=== PATIENT | female | born 1960 | race Caucasian/White ===

== ENCOUNTER → 2018-10-18 | Outpatient (CLI) | payer OTHER ==
[~2018-10-18] VITALS: Ht 160 cm; Wt 53.5 kg
[~2018-10-18] MED LIST: ACCUNEB SO1.25 MG/1 INH; APAP650 PO; ASPIR 8181 MG PO; FISH OIL 1,001000 M2 PO; MULTIVITAMINS PO; OMEPRAZOLE40 MG PO; PRAVACHOL20 MG PO; RESTASIS MULTI5.5 ML OPHTHALMIC; SYNTHROID50 MCG PO; VOLTAREN GEL 1100 G2 TOP; ZANAFLEX2 MG PO
[2018-10-18 09:53] VITALS: BP 134/64
--- NOTE | 2018-10-18 10:26 | NUR ---
Pain Clinic Assessment: 1. History of Osteoarthritis: History of Rheumatoid Arthritis: 2. Height: 5 ft. 3 in. 160.0 cm. Weight: 118.0 lb. oz. 53.524 kg. Patient's BMI: 20.9 3. Vital Signs: BP: 134/64 Pulse: 80 Resp: 14 Temp: 02 Sat: 97 ECG Mon: 4. Pain Intensity: 4 5. Fall Risk: Dizziness: N Needs help standing or walking: N Fallen in the last 3 months: N Fall risk comments: 6. Patient on Blood Thinner: None 7. History of Hypertension: N 8. Opioid Therapy greater than 6 weeks: N Opiate Contract Signed: 9. Risk Assessment Tool Provided: 10. Functional Assessment Tool: 11. Recreational Drug Use: Never Drug Type: Tobacco Use: Never Smoker Tobacco Type: Amount or Packs/day: How Many Years: Alcohol Use: Yes Frequency: Monthly Quant: 1-2 A MONTH
--- NOTE | 2018-10-26 15:29 | HPC ---
[facility] [place] [address] PAIN MANAGEMENT CONSULTATION Name: NORBERT DANIELSON Room #: [facility].#: [id number] Admission: 10/18/18 ������������������ Attend Phys: Bonifacio Hopkins MD Discharge: ������������������ Date of : 64 Report #: [id number] THIS REPORT FOR: //name// CC: JIE Hopkins DATE OF SERVICE: 10/18/2018 This is the first visit in the office for the patient who is here today at the request of Dr. Beatriz Segovia and also from Dr. Jie Cueva and his advanced nurse practitioner. She has been suffering from symptoms characteristic of an L5-S1 radiculopathy. She has an EMG, which shows no evidence of radicular changes and an MRI, which I have reviewed personally that is relatively normal. There is perhaps some slight desiccation of the L5-S1 disk. Because of the paucity of findings in the lumbar spine, she has been treated for piriformis syndrome. She has not responded favorably. She has also had physical exam, but of late limited her activity. Today, she complains of low back pain and bilateral hip pain, but primarily right leg pain that radiates through the hip to the calf. It is an aching tenderness that she describes as 4/10. It is exacerbated by walking and standing and she gets relief from lying down and stretching. MEDICATIONS: Albuterol, multivitamins, Voltaren gel, Tylenol Extra Strength, fish oil, aspirin, Zanaflex, Restasis, omeprazole, pravastatin, and levothyroxine. ALLERGIES: PENICILLIN and ERYTHROMYCIN BASE. PAST MEDICAL HISTORY: Cholecystectomy in 1997. History of gastroesophageal reflux disease. Hypothyroidism. Ganglion cystectomy right wrist 2015. SOCIAL HISTORY: She is . 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 She denies use of tobacco and enjoys alcohol once or twice a month in a social setting. REVIEW OF SYSTEMS: Completed by the patient describes chronic sinusitis, nocturia, numbness and tingling into the right leg and thyroid problems. PHYSICAL EXAMINATION: GENERAL: She is a very pleasant female. No evidence of depression or anxiety. VITAL SIGNS: Blood pressure is 134/64, heart rate is 80, respirations 14, O2 sat 97. Pain intensity is 4/10. [address] [address] PAIN MANAGEMENT CONSULTATION Name: NORBERT DANIELSON Room #: [facility].#: [id number] Admission: 10/18/18 ������������������ Attend Phys: Bonifacio Hopkins MD Discharge: ������������������ Date of : 64 Report #: [id number] EXTREMITIES: She moves from sitting to standing position, has a fairly broad-based gait which was unexpected. She has pain with back extension, reproduces radicular component into the hip and leg. Straight leg raising is positive. Examination of the hip reveals no pain with internal and external rotation, flexion or extension. Sensation is subjectively diminished slightly along the outside of the thigh and calf. No weakness is noted in any of muscle group testing in the lower extremities. IMPRESSION: Symptoms are classic of lumbar radiculopathy, however, the objective studies are limited other than mild desiccation of the L5-S1 disk. It could be some chemical radicular pain related to the phospholipase A2 component of the disk. If there is an annular tear, I would consider an epidural steroid injection for both diagnostic and hopefully therapeutic purposes. I explained the procedure in some detail to the patient. She would like to proceed today with the injection, but we need to wait for preauthorization. Also, I felt a new MRI would be warranted given her ongoing and persistent symptoms. Her last MRI was over 2 years ago. This was ordered. Later after the patient left I noted that she will need to have this ordered by her primary care physician through . So I am sure that will be held up in the process. Finally, I did discuss with her the importance of regular exercise. Daily walk of minimum and she should try and increase her steps. She has worked with physical therapy in the past, so I have encouraged her to continue with range of motion exercises. Hopefully, the epidural will alleviate pain some, so that this important therapy can continue. ��������������������������������������������� <ELECTRONICALLY SIGNED> ���������������������������������������� By: Bonifacio Hopkins MD ��������������������������������������������� 10/26/18 1529 [id number] [id number] Bonifacio Hopkins MD /nt
== END ==
LOC: PAIN 08:45
DX: M54.17 Radiculopathy, lumbosacral region (principal); Z79.899 Other long term (current) drug therapy

== ENCOUNTER → 2018-12-05 | Outpatient (CLI) | payer OTHER ==
[~2018-12-05] VITALS: Ht 160 cm; Wt 55.0 kg
--- NOTE | ~2018-12-05 | HPC ---
[facility] [place] [address] PAIN MANAGEMENT CONSULTATION Name: NORBERT DANIELSON [facility] [id number] Admission: 12/05/18 ������������������ Attend Phys: Bonifacio Hopkins MD Discharge: ������������������ Date of : 64 Report #: [id number] THIS REPORT FOR: //name// CC: Beatriz Hopkins DATE OF SERVICE: 12/05/2018 Followup visit for lumbar epidural steroid injection. The patient returns to pain clinic today and we have decided to proceed with an epidural injection. She has classic symptoms of radiculopathy, but objective studies are limited other than desiccation of the L5-S1 disk. We have given some consideration to why she may be experiencing radiculopathy. As we know that disk nucleus contains phospholipase A2, which has inflammatory component and we do have some patients who experience radiculopathy, I believe, purely on a chemical basis. An epidural steroid injection should be helpful if that is true. We discussed potential benefits and risks. Preauthorization have been received. We talked about an MRI, but elected not to go forward with that. Her last MRI was over 2 years ago and we have noted that there is desiccation of the L5-S1 disk. PHYSICAL EXAMINATION: GENERAL: She is a pleasant female. VITAL SIGNS: Blood pressure 111/60, heart rate 77, respirations 16. BMI 21.5. She moves easily from sitting to standing position. Her gait is nonantalgic. She has some pain with persistent walking that begins across the low back and radiates down the posterior lateral aspect of both legs, right worse than left. IMPRESSION: Lumbar radiculopathy. Disk desiccation at L5-S1. RECOMMENDATION: Epidural steroid injection. PROCEDURE: Epidural steroid injection, L5-S1 under fluoroscopic guidance. She was taken to the fluoroscopic suite where she was placed prone, skin prepped with ChloraPrep. Skin anesthetized over the L5-S1 interspace. Using biplanar fluoroscopic views, I advanced the needle into the epidural space. There was no blood or CSF aspirated. Omnipaque 1 mL was injected and excellent spread of dye observed in the epidural space. This was then followed by 3 mL of 0.5% lidocaine mixed with 80 mg triamcinolone. She tolerated the procedure well. She was observed for 45 minutes and discharged. [address] [address] PAIN MANAGEMENT CONSULTATION Name: NORBERT DANIELSON Room #: [facility].#: [id number] Admission: 12/05/18 ������������������ Attend Phys: Bonifacio Hopkins MD Discharge: ������������������ Date of : 64 Report #: [id number] Followup visit planned in the pain clinic in 1-2 months. ��������������������������������������������� ���������������������������������������� By: ��������������������������������������������� 0950 15 Bonifacio Hopkins MD /nt
[2018-12-05 13:59] VITALS: BP 111/60
--- NOTE | 2018-12-05 14:18 | NUR ---
Pain Clinic Assessment: 1. History of Osteoarthritis: Not Applicable History of Rheumatoid Arthritis: Not Applicable 2. Height: 5 ft. 3 in. 160.0 cm. Weight: 121.2 lb. oz. 54.976 kg. Patient's BMI: 21.5 3. Vital Signs: BP: 111/60 Pulse: 77 Resp: 16 Temp: 02 Sat: 97 ECG Mon: 4. Pain Intensity: 3-4 5. Fall Risk: Dizziness: N Needs help standing or walking: N Fallen in the last 3 months: N Fall risk comments: 6. Patient on Blood Thinner: None 7. History of Hypertension: N 8. Opioid Therapy greater than 6 weeks: N Opiate Contract Signed: 9. Risk Assessment Tool Provided: 10. Functional Assessment Tool: 11. Recreational Drug Use: Never Drug Type: Tobacco Use: Never Smoker Tobacco Type: Amount or Packs/day: How Many Years: Alcohol Use: Yes Frequency: Monthly Quant: 1-2
== END | disposition home or self-care (01) ==
LOC: PAIN 06:58
DX: M54.16 Radiculopathy, lumbar region (principal); Z88.8 Allergy status to other drugs, medicaments and biological substances; Z88.0 Allergy status to penicillin; Z79.899 Other long term (current) drug therapy; Z79.82 Long term (current) use of aspirin

== ENCOUNTER → 2019-03-20 | Outpatient (CLI) | payer OTHER ==
[~2019-03-20] VITALS: Ht 160 cm; Wt 56.9 kg
[~2019-03-20] MED LIST changes: +ESTRADIOL42.5 GM VAG; +PROGESTERONE100 MG PO
--- NOTE | ~2019-03-20 | HPC ---
[facility] [address] [address] PAIN MANAGEMENT CONSULTATION Name: NORBERT DANIELSON Room #: [facility].#: [id number] Admission: 03/20/19 Attend Phys: Bonifacio Hopkins MD Discharge: Date of : 64 Report #: [id number] THIS REPORT FOR: //name// CC: Beatriz Hopkins DATE OF SERVICE: 03/20/2019 REASON FOR VISIT: Followup visit for lumbar radiculopathy. The patient was last seen on 12/05/2018. At that time, she received a lumbar epidural steroid injection performed at the level of L5-S1. She had excellent response. Pain was dramatically improved over the next several days. She was able to take long trip was able to do a number of different gardening activities throughout the month of November and December. Beginning in January after doing some lawn mowing and other chores necessitated by her 's chemotherapy. She began experiencing symptoms once again. She is here today for an epidural injection. Her has been treated for bladder cancer and is finishing his chemotherapy. We discussed importance of proper body mechanics and avoiding re-injury. PHYSICAL EXAMINATION: GENERAL: She is a pleasant 58-year-old. VITAL SIGNS: Blood pressure 126/66, heart rate 76, respirations 14. She moves from sitting to standing position. Her gait is mildly antalgic. She has tenderness across her low back. Straight leg raising is present on the left consistent with lumbar radiculopathy. Sensation and strength are normal. IMPRESSION: Lumbar radiculopathy, left L5-S1. PROCEDURE: Epidural steroid injection under fluoroscopic guidance. DESCRIPTION OF PROCEDURE: She was taken to fluoroscopic suite, placed prone, skin prepped with ChloraPrep. Skin anesthetized over the L5-S1 interspace to the left of midline. A 20-gauge Tuohy epidural needle advanced first attempt in the epidural space with loss of resistance. There was no blood and CSF aspirated. A 1 mL of Omnipaque was injected. Good spread of dye observed into the epidural space, was followed by 3 mL of 0.5% lidocaine mixed with 80 mg of triamcinolone. She tolerated the procedure well and was observed for 45 minutes and discharged. [facility] [address] [place] [address] PAIN MANAGEMENT CONSULTATION Name: NORBERT DANIELSON Room #: [facility]#: [id number] Admission: 03/20/19 Attend Phys: Bonifacio Hopkins MD Discharge: Date of : 64 Report #: [id number] Follow up as needed. By: [id number] Bonifacio Hopkins MD /nt
[2019-03-20 15:04] VITALS: BP 125/66
--- NOTE | 2019-03-20 15:16 | NUR ---
Pain Clinic Assessment: 1. History of Osteoarthritis: Not Applicable History of Rheumatoid Arthritis: Not Applicable 2. Height: 5 ft. 3 in. 160.0 cm. Weight: 125.4 lb. oz. 56.881 kg. Patient's BMI: 22.2 3. Vital Signs: BP: 125/66 Pulse: 76 Resp: 14 Temp: 02 Sat: 98 ECG Mon: 4. Pain Intensity: 2 NOW 6 WALKING 5. Fall Risk: Dizziness: N Needs help standing or walking: N Fallen in the last 3 months: N Fall risk comments: 6. Patient on Blood Thinner: None 7. History of Hypertension: N 8. Opioid Therapy greater than 6 weeks: N Opiate Contract Signed: 9. Risk Assessment Tool Provided: 10. Functional Assessment Tool: 11. Recreational Drug Use: Never Drug Type: Tobacco Use: Never Smoker Tobacco Type: Amount or Packs/day: How Many Years: Alcohol Use: Yes Frequency: Quant:
== END | disposition home or self-care (01) ==
LOC: PAIN 07:07
DX: M54.16 Radiculopathy, lumbar region (principal); G89.29 Other chronic pain; Z98.890 Other specified postprocedural states; Z88.0 Allergy status to penicillin; Z88.8 Allergy status to other drugs, medicaments and biological substances; Z79.82 Long term (current) use of aspirin; Z79.899 Other long term (current) drug therapy

== ENCOUNTER → 2019-11-23 | Outpatient (CLI) | payer OTHER ==
[~2019-11-23] VITALS: Ht 160 cm; Wt 55.8 kg
--- NOTE | ~2019-11-23 | HPC ---
[facility] [place] [address] PAIN MANAGEMENT CONSULTATION Name: NORBERT DANIELSON Room #: [facility].#: [id number] Admission: 11/23/19 Attend Phys: Bonifacio Hopkins MD Discharge: Date of : 64 Report #: [id number] THIS REPORT FOR: cc: Beatriz Segovia MD,Beatriz Hopkins,Bonifacio Hinson MD ~ CC: Gurinder Hopkins DATE OF SERVICE: 11/23/2019 Followup visit for lumbar radiculopathy. This is a return visit for the patient who had an outstanding response to her initial epidural injection performed last year. Second injection was performed in March and that was the last time I saw her. She reports today that her pain relief following the injection was fairly rapid and dramatic and she was sustained. Pain is now returning and is affecting her day-to-day activities. 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 She is also dealing with cancer in her own family. Her has a renal cell cancer and has had some worsening of his condition. Pain intensity today is listed as 3 sitting and 7 at its worst with standing and walking activities. Pain radiates as before in a radicular fashion and she has an EMG from Dr. Gurinder Cueva suggesting chronic radiculopathy. PHYSICAL EXAMINATION: GENERAL: Pleasant female, we were both wearing a mask today because of COVID restrictions. VITAL SIGNS: Her blood pressure 127/76, heart rate 87, respirations 18, O2 sat 97. She can independently move from standing position. Her gait is mildly antalgic. Tenderness across her low back and some straight leg raising discomfort bilaterally, radiating into the hips. IMPRESSION: Chronic low back pain related to disk desiccation at L5-S1. RECOMMENDATION: Epidural steroid injection under fluoroscopic guidance. DESCRIPTION OF PROCEDURE: She was taken to fluoroscopic suite for treatment, placed prone, skin prepped with ChloraPrep. Skin anesthetized over the L5-S1 interspace to the left of midline. A 20-gauge Tuohy epidural needle advanced in first attempt into the epidural space with loss of resistance technique. There [address] [address] PAIN MANAGEMENT CONSULTATION Name: NORBERT DANIELSON [facility] [id number] Admission: 11/23/19 Attend Phys: Bonifacio Hopkins MD Discharge: Date of : 64 Report #: [id number] was no blood nor CSF aspirated. A 1 mL of Omnipaque injected. Good spread of dye observed in the epidural space, was followed by 3 mL of 0.5% lidocaine mixed with 80 mg of triamcinolone. She tolerated the procedure well and was observed for 45 minutes and discharged. Followup visit as needed. By: [id number] Bonifacio Hopkins MD /nt
[2019-11-23 09:29] VITALS: BP 127/76
--- NOTE | 2019-11-23 09:37 | NUR ---
Pain Clinic Assessment: 1. History of Osteoarthritis: Not Applicable History of Rheumatoid Arthritis: Not Applicable 2. Height: 5 ft. 3 in. 160.0 cm. Weight: 123.0 lb. oz. 55.792 kg. Patient's BMI: 21.8 3. Vital Signs: BP: 127/76 Pulse: 87 Resp: 18 Temp: 02 Sat: 97 ECG Mon: 4. Pain Intensity: 3-SITTING 7 AT WORST 5. Fall Risk: Dizziness: N Needs help standing or walking: N Fallen in the last 3 months: N Fall risk comments: 6. Patient on Blood Thinner: None 7. History of Hypertension: N 8. Opioid Therapy greater than 6 weeks: N Opiate Contract Signed: 9. Risk Assessment Tool Provided: 10. Functional Assessment Tool: 11. Recreational Drug Use: Never Drug Type: Tobacco Use: Never Smoker Tobacco Type: Amount or Packs/day: How Many Years: Alcohol Use: Yes Frequency: Quant:
== END | disposition home or self-care (01) ==
LOC: PAIN 09:13
DX: M51.17 Intervertebral disc disorders with radiculopathy, lumbosacral region (principal); M54.5 Low back pain; G89.29 Other chronic pain; Z98.890 Other specified postprocedural states; Z88.0 Allergy status to penicillin; Z88.8 Allergy status to other drugs, medicaments and biological substances; Z79.899 Other long term (current) drug therapy

== ENCOUNTER → 2020-03-25 | Outpatient (CLI) | payer OTHER ==
[~2020-03-25] VITALS: Ht 160 cm; Wt 54.2 kg
[2020-03-25 10:26] VITALS: BP 130/70
--- NOTE | 2020-03-25 10:44 | NUR ---
Pain Clinic Assessment: 1. History of Osteoarthritis: BACK History of Rheumatoid Arthritis: Not Applicable 2. Height: 5 ft. 3 in. 160.0 cm. Weight: 119.4 lb. oz. 54.159 kg. Patient's BMI: 21.2 3. Vital Signs: BP: 130/70 Pulse: 81 Resp: 14 Temp: 02 Sat: 98 ECG Mon: 4. Pain Intensity: 3 5. Fall Risk: Dizziness: N Needs help standing or walking: N Fallen in the last 3 months: N Fall risk comments: 6. Patient on Blood Thinner: None 7. History of Hypertension: N 8. Opioid Therapy greater than 6 weeks: N Opiate Contract Signed: 9. Risk Assessment Tool Provided: LOW RISK 0/3 10. Functional Assessment Tool: 11. Recreational Drug Use: Never Drug Type: Tobacco Use: Never Smoker Tobacco Type: Amount or Packs/day: How Many Years: Alcohol Use: Yes Frequency: Weekly Quant: 1
--- NOTE | 2020-03-28 11:44 | HPC ---
[facility] [place] [address] PAIN MANAGEMENT CONSULTATION Name: NORBERT DANIELSON Room #: [facility].#: [id number] Admission: 03/25/20 Attend Phys: Bonifacio Hopkins MD Discharge: Date of : 64 Report #: [id number] THIS REPORT FOR: cc: Beatriz Segovia MD,Beatriz Hopkins,Bonifacio Hinson MD ~ CC: Beatriz Hopkins DATE OF SERVICE: 03/25/2020 Followup visit for lumbar radiculopathy. HISTORY OF PRESENT ILLNESS: The patient is here today for repeat epidural injection. She has done very well with her prior shots. Her last injection was performed in October, providing with several months of good pain relief. She is continuing to try and remain active and enjoys gardening. Pain is now returning and radiates mostly down the back of her legs in an L5-S1 distribution bilaterally. She is not currently using medicine for pain. She does try and remain active and fit with exercise. PHYSICAL EXAMINATION: She is a pleasant 59-year-old, alert and oriented. She moves independently from sitting to standing position, her gait is mildly antalgic. She has tenderness across her low back, pain with forward flexion and extension. Bilateral straight leg raising is noted mostly in the L5-S1 distribution. IMPRESSION: Lumbar radiculopathy secondary to disk desiccation at L5-S1 and discogenic mechanisms. PROCEDURE: Epidural steroid injection under fluoroscopic guidance. DESCRIPTION OF PROCEDURE: After informed consent, she was taken to fluoroscopic suite, placed prone, skin prepped with ChloraPrep. Skin anesthetized over the L5-S1 interspace. A 20-gauge Tuohy epidural needle advanced in the epidural space with loss of resistance. There was no blood or CSF aspirated. A 1 mL of Omnipaque injected. Good spread of dye observed in the epidural space followed by 3 mL of 0.5% lidocaine mixed with 80 mg triamcinolone. She tolerated the procedure well and there were no complications. She was taken to recovery room for observation. Followup visit planned as needed. <ELECTRONICALLY SIGNED> By: Bonifacio Hopkins MD 03/28/20 1144 1122 1316 Bonifacio Hopkins MD /nt
== END | disposition home or self-care (01) ==
LOC: PAIN 06:56
PROVIDERS: ATTEND Anesthesiology Pain Medicine
DX: M54.16 Radiculopathy, lumbar region (principal); M51.36 Other intervertebral disc degeneration, lumbar region; G89.29 Other chronic pain; Z98.890 Other specified postprocedural states; Z79.899 Other long term (current) drug therapy

== ENCOUNTER → 2020-06-24 | Outpatient (CLI) | payer OTHER ==
[~2020-06-24] VITALS: Ht 157.5 cm; Wt 55.3 kg
[2020-06-24 09:01] VITALS: BP 128/71
--- NOTE | 2020-06-24 09:10 | NUR ---
Pain Clinic Assessment: 1. History of Osteoarthritis: BACK History of Rheumatoid Arthritis: Not Applicable 2. Height: 5 ft. 2 in. 157.5 cm. Weight: 122.0 lb. oz. 55.339 kg. Patient's BMI: 22.3 3. Vital Signs: BP: 128/71 Pulse: 80 Resp: 18 Temp: 02 Sat: 99 ECG Mon: 4. Pain Intensity: 1-2 5. Fall Risk: Dizziness: N Needs help standing or walking: N Fallen in the last 3 months: N Fall risk comments: 6. Patient on Blood Thinner: None 7. History of Hypertension: N 8. Opioid Therapy greater than 6 weeks: N Opiate Contract Signed: 9. Risk Assessment Tool Provided: LOW RISK 0/3 10. Functional Assessment Tool: 11. Recreational Drug Use: Never Drug Type: Tobacco Use: Never Smoker Tobacco Type: Amount or Packs/day: How Many Years: Alcohol Use: Yes Frequency: Weekly Quant: 1/WEEK
== END | disposition home or self-care (01) ==
LOC: PAIN 06:41
PROVIDERS: ATTEND Anesthesiology Pain Medicine
DX: M54.16 Radiculopathy, lumbar region (principal); G89.29 Other chronic pain; Z98.890 Other specified postprocedural states; Z79.899 Other long term (current) drug therapy; Z88.8 Allergy status to other drugs, medicaments and biological substances

== ENCOUNTER → 2020-10-10 | Outpatient (CLI) | payer OTHER ==
[~2020-10-10] VITALS: Ht 157.5 cm; Wt 55.8 kg
[~2020-10-10] MED LIST changes: +TRAMADOL 50 MG50 MG PO
[2020-10-10 09:01] VITALS: BP 122/76
--- NOTE | 2020-10-10 09:08 | NUR ---
Pain Clinic Assessment: 1. History of Osteoarthritis: BACK HANDS History of Rheumatoid Arthritis: Not Applicable 2. Height: 5 ft. 2 in. 157.5 cm. Weight: 123.0 lb. oz. 55.792 kg. Patient's BMI: 22.5 3. Vital Signs: BP: 122/76 Pulse: 87 Resp: 18 Temp: 02 Sat: 98 ECG Mon: 4. Pain Intensity: 4 5. Fall Risk: Dizziness: N Needs help standing or walking: N Fallen in the last 3 months: N Fall risk comments: 6. Patient on Blood Thinner: None 7. History of Hypertension: N 8. Opioid Therapy greater than 6 weeks: N Opiate Contract Signed: 9. Risk Assessment Tool Provided: LOW RISK 0/3 10. Functional Assessment Tool: 11. Recreational Drug Use: Never Drug Type: Tobacco Use: Never Smoker Tobacco Type: Amount or Packs/day: How Many Years: Alcohol Use: Yes Frequency: Weekly Quant: 1 BEER
== END | disposition home or self-care (01) ==
LOC: PAIN 06:39
PROVIDERS: ATTEND Anesthesiology Pain Medicine
DX: M54.16 Radiculopathy, lumbar region (principal); G89.29 Other chronic pain; M19.90 Unspecified osteoarthritis, unspecified site; Z98.890 Other specified postprocedural states; Z79.899 Other long term (current) drug therapy; Z88.0 Allergy status to penicillin; Z88.8 Allergy status to other drugs, medicaments and biological substances

== ENCOUNTER → 2021-01-13 | Outpatient (CLI) | payer OTHER ==
[~2021-01-13] VITALS: Ht 157.5 cm; Wt 53.7 kg
[2021-01-13 14:26] VITALS: BP 117/71
--- NOTE | 2021-01-13 14:50 | NUR ---
Pain Clinic Assessment: 1. History of Osteoarthritis: BACK HANDS History of Rheumatoid Arthritis: Not Applicable 2. Height: 5 ft. 2 in. 157.5 cm. Weight: 118.4 lb. oz. 53.706 kg. Patient's BMI: 21.7 3. Vital Signs: BP: 117/71 Pulse: 73 Resp: 14 Temp: 02 Sat: 97 ECG Mon: 4. Pain Intensity: 3; 5 TO 6 WITH ACTIVITY 5. Fall Risk: Dizziness: N Needs help standing or walking: N Fallen in the last 3 months: N Fall risk comments: 6. Patient on Blood Thinner: None 7. History of Hypertension: N 8. Opioid Therapy greater than 6 weeks: N Opiate Contract Signed: 9. Risk Assessment Tool Provided: LOW RISK 0/3 10. Functional Assessment Tool: 11. Recreational Drug Use: Never Drug Type: Tobacco Use: Never Smoker Tobacco Type: Amount or Packs/day: How Many Years: Alcohol Use: Yes Frequency: Weekly Quant:
== END ==
LOC: PAIN 10:56
PROVIDERS: ATTEND Anesthesiology Pain Medicine
DX: M79.661 Pain in right lower leg (principal); M79.662 Pain in left lower leg; G89.4 Chronic pain syndrome; M54.5 Low back pain; Z79.899 Other long term (current) drug therapy; Z79.891 Long term (current) use of opiate analgesic; Z72.89 Other problems related to lifestyle; Z88.1 Allergy status to other antibiotic agents; Z88.0 Allergy status to penicillin

== ENCOUNTER → 2021-02-24 | Outpatient (CLI) | payer OTHER ==
[~2021-02-24] VITALS: Ht 157.5 cm; Wt 53.3 kg
[2021-02-24 09:11] VITALS: BP 126/72
--- NOTE | 2021-02-24 09:29 | NUR ---
Pain Clinic Assessment: 1. History of Osteoarthritis: BACK HANDS History of Rheumatoid Arthritis: Not Applicable 2. Height: 5 ft. 2 in. 157.5 cm. Weight: 117.4 lb. oz. 53.252 kg. Patient's BMI: 21.5 3. Vital Signs: BP: 126/72 Pulse: 82 Resp: 16 Temp: 02 Sat: 97 ECG Mon: 4. Pain Intensity: 1;4 TO 5 WITH ACTIVITY 5. Fall Risk: Dizziness: N Needs help standing or walking: N Fallen in the last 3 months: N Fall risk comments: 6. Patient on Blood Thinner: None 7. History of Hypertension: N 8. Opioid Therapy greater than 6 weeks: N Opiate Contract Signed: 9. Risk Assessment Tool Provided: LOW RISK 0/3 10. Functional Assessment Tool: 11. Recreational Drug Use: Never Drug Type: Tobacco Use: Never Smoker Tobacco Type: Amount or Packs/day: How Many Years: Alcohol Use: Yes Frequency: Weekly Quant: 1
== END | disposition home or self-care (01) ==
LOC: PAIN 07:06
PROVIDERS: ATTEND Anesthesiology Pain Medicine
DX: M54.16 Radiculopathy, lumbar region (principal); M48.061 Spinal stenosis, lumbar region without neurogenic claudication; M43.16 Spondylolisthesis, lumbar region; M19.90 Unspecified osteoarthritis, unspecified site; Z98.890 Other specified postprocedural states; Z79.899 Other long term (current) drug therapy; Z88.0 Allergy status to penicillin